=== PATIENT | male | born 1985 | race Hispanic/Latino ===

== ENCOUNTER 2017-01-11 12:14 | Emergency (ER) | payer OTHER ==
[~2017-01-11] VITALS: Ht 167.6 cm; Wt 83.6 kg
[~2017-01-11 12:14] MED LIST: CETI-188 PO
[2017-01-11 12:18] VITALS: BP 123/67; PULSE 89; RESP 14; O2SAT 95
--- NOTE | 2017-01-11 12:20 | ED.REPORT ---
HPI-Extremity Problem Lower Date of Service Jan 11, 2017 ED Provider: Alexis Reed MD 31 year old male presents to the ER via EMS accompanied by his due to right knee pain secondary to a sports-related injury that occurred while running during a soccer game just prior to arrival. He states that he was running and planted his right foot and pivoted to change directions. When he pushed off with his right leg he heard and felt a "pop" with onset of pain. Patient denies history of patellar dislocation, and any other injuries secondary to the accident. Nursing Notes Stated Complaint: RIGHT KNEE PAIN Chief Complaint: Extremity Trauma Nursing Notes Reviewed: Yes Allergies: Coded Allergies: No Known Allergies (Unverified Allergy, Unknown, 01/11/17) Scheduled Cetirizine-Expunged Drug, Do Not Renew! (Cetirizine-Expunged Drug, Do Not Renew! ) 10 Mg Tablet 10 MG PO PRN General Time Seen by MD: 12:19 Chief Complaint Knee injury right Hx Obtained From: Patient Arrived By: Ambulance Onset Occurred: Just prior to arrival Symptom Duration: Since onset Caused by: Accidental, Sports injury Context: Occurred at: Sports injury Location: : Knee right Quality: Painful Severity: Current: Moderate Severity: Maximum: Moderate Past Medical History Past Medical History Healthy Past Surgical History Reports: Appendectomy Smoking History Unknown if Ever Smoker Social History Other Social History: Good social support Review of Systems Musculoskeletal: Reports: Joint pain (Right Knee), Denies: Back pain, Extremity pain, Lumbar pain, Neck pain, Thoracic pain Neurologic: Denies: Headache, Syncope Complete sys rev & neg: except as marked. Physical Exam Initial Vital Signs Vital Signs (First) Date Time Temp Pulse Resp B/P Pulse Ox O2 Delivery O2 Flow Rate FiO2 01/11/17 12:18 37.3 89 14 123/67 95 Room Air Initial VS: Reviewed General/Constitutional: Well-developed, Well-nourished Head / Eyes: Atraumatic, Normocephalic, PERRL Neck: Supple, Non-tender, Full range of motion Upper Extremities: Vascular intact, Neuro intact, No swelling, No tenderness Skin: Warm, Dry, No cyanosis Neurologic: Alert, Oriented, Nonfocal Lower Extremity / Pelvis / MS: Neurologic intact, Vascular intact Right Knee: Positive: Tenderness present... High-riding Right Patella, appears to be midline. Presents with Right knee flexed, easily straightened out. Ankle / Foot: Atraumatic, Inspection NL, Full range of motion, No swelling, No erythema, Non-tender, No deformity, Neurologic intact, Vascular intact, No edema Interpretation & Diagnostics Lab Results Interpretation Test 01/11/17 12:33 Hold Purple Top Tube Received (Received) Hold Blue Top Tube Received (Received) Hold Red Top Tube Received (Received) Hold Mills Top Tube Received (Received) X-Ray Interpretation Xray Interpretation: IMPRESSION: High positioned patella. Patellar tendon abnormality would be suspect. Dictated by: Tk Mantilla M.D. on 01/11/2017 at 13:46 Approved by: Tk Mantilla M.D. on 01/11/2017 at 13:46 X-Ray Ordered: Knee right Interpretation / Wet Read by: Interpret - Radiologist Procedures Splint Application - Fx Mgt Time: 13:13 Procedure Performed by: ED physician, Plating Tank Operator Precise Anatomic Location: Right Knee Knee immobilizer Post-Procedure / Complications: Cap refill normal, Post splint vascular nl, Post splint neuro nl, Condition improved, Tolerated procedure well, Patient stable Splint Post-Application Eval Extremity Condition: Cap refill < 2 sec, Distal sensation intact, Distal motor Intact, No compartment syndrome Re-Eval/Medical Decision Med Decision/Clinical Course MRI ordered for ortho planning. Pt will be discharged post MR with ortho to follow up on results. Re-Evaluation/Progress #1: Time of Eval: 13:09 Re-Evaluation/Progress Note: Discussed radiology and plan to discharge with instructions to follow-up with orthopedics. Re-Evaluation/Progress #2: Time of Eval: 13:30 Re-Evaluation/Progress Note: Discussed consults with orthopedics and radiology and need for MRI. Patient is amenable to the plan to wait for MRI today. All other questions addressed. Consultation #1: Referral / Consult Name: Naeem Sims MD Consulted With: Orthopedic Call Returned at: 13:13 Environmental Control Administrator: Will see patient Note: Recommends MRI, today. Consultation #2: Referral / Consult Name: Tk Mantilla MD Consulted With: On-call physician (Radiology) Call Returned at: 13:22 Consultation #3: Referral / Consult Name: Naeem Sims MD Consulted With: Orthopedic Call Returned at: 13:42 Note: Updated Dr. Sims on the plan of care. Counseled Regarding: Diagnosis, Lab results, Need for follow-up, When/why to return to ED Discharge & Departure Impression: Primary Impression: Patellar tendon rupture Disposition: Home Discharge Condition All VS Reviewed: Yes Condition: Stable Patient Instructions: Crutch Instructions (ED) Additional Instructions: ED evaluation included interview, exam and x-ray. At the request of the orthopedics doctor, we got an MRI of your knee. Wear your knee immobilizer at all times. Use crutches, no wt bearing on R leg. Call for orthopedics follow up jacey, Dr Sims will review your MRI. May use percocet 1-2 every 4 hours as needed for pain. elevate knee above level of heart when able. return to ED for severe pain in leg, or if foot is numb or cold. Referrals: Naeem Sims MD Attestation Portions of this note were transcribed by David Gandara. I, Dr. Reed, personally performed the history, physical exam and medical decision-making; I reviewed and confirmed the accuracy of the information in the transcribed note. Signed by: Sidney Dukes, 01/11/2017, and 13:50 copies to: Naeem Sims MD, Donald L MD Jan 11, 2017 12:20 DAVID GANDARA Jan 11, 2017 12:30
--- NOTE | 2017-01-11 13:48 | DRSVH ---
PROCEDURE: X-RAY RIGHT KNEE, THREE VIEWS ([id number]) INDICATIONS: trauma with deformity TECHNIQUE: 3 views of the knee were acquired. COMPARISON: None. FINDINGS: Bones: No fractures or dislocations. Patella is high in position. Soft tissues: No joint effusion. No suspicious soft tissue calcifications. IMPRESSION: High positioned patella. Patellar tendon abnormality would be suspect. Dictated by: Tk Manitlla M.D. on 01/11/2017 at 13:46 Approved by: Tk Mantilla M.D. on 01/11/2017 at 13:46
[2017-01-11] MEDS ORDERED: oxyCODONE-Acetamin 5-325 mg Tablet PO ONE (13:50)
[2017-01-11] MEDS ORDERED: OXYC-407 PO (15:00)
--- NOTE | 2017-01-11 16:25 | DRSVH ---
PROCEDURE: MRI KNEE RIGHT WITHOUT CONTRAST ([id number]) INDICATIONS: r knee pain/unable to actively extend TECHNIQUE: Noncontrast sagittal PD fast spin echo and T2 fast spin echo with fat saturation, sagittal 3-D FLASH with fat saturation; coronal T1 spin echo and PD fast spin echo with fat saturation, and axial PD fas t spin echo with fat saturation through the knee. COMPARISON: None. FINDINGS: Image quality: Diagnostic. Bones and joint: No acute fracture or dislocation is identified. However, there is proximal migrati on of the patella with respect to the tibia related to a full-thickness proximal patellar tendon tear . No bony avulsion is appreciated. No suspicious osseous lesions are evident. The hyaline articula r cartilage appears to be intact within all 3 compartments of the knee. However, there is mild heter ogeneity of the cartilage within the patellofemoral compartment and the medial compartment. There is a moderate-sized knee joint effusion without significant fluid extending into a Mora cyst. Menisci: There is low-grade partial-thickness tearing involving the anterior attachment of the media l and lateral menisci as well as the posterior attachment of the medial meniscus. Additional undersu rface fraying along the body and posterior horn of the medial meniscus is present. No displaced meni scal fragments or significant articular surface involvement is appreciated. Cruciate ligaments: The anterior cruciate ligament is slightly thickened and it noted to be edematou s. There probably is at least low-grade partial-thickness tearing. The posterior cruciate ligament is intact and otherwise within normal limits. Medial structures: Extensive edema along the anteromedial aspect of the knee is identified extending along the medial patellofemoral ligament. There probably is a complete tear involving this ligament . The medial collateral ligament appears intact. The distal semimembranosus tendon is intact and oth erwise within normal limits. Visualized portions of the pes anserinus tendons appear normal. No abn ormal bursal fluid. Lateral structures: Prominent edema is noted along the anterolateral margin of the knee. There is e chloe noted at the tendinous attachment of the patellofemoral ligament with a probable full-thickness tear present. The distal iliotibial band and biceps femoris tendons are intact. The lateral collate ral ligament and the proximal popliteal tendon also appear to be intact. The proximal tibiofibular l igaments are intact. Anterior structures: There is a full-thickness tear involving the patellar attachment of the patella r tendon with proximal migration of the patella with respect to be torn patellar tendon by approximat april 1.7 cm. Additional partial-thickness tearing through the tendon is evident, including the tibial attachment. There is a large amount of overlying edema and fluid about the anterior aspect of the k nee, including within the prepatellar bursa and the infrapatellar fat pad. The distal quadriceps ten don appears intact and is otherwise unremarkable. IMPRESSION: 1. Full-thickness proximal patellar tendon tear with separation of the patella and the patellar tend on fragment by up to 1.7 cm. Additional intrasubstance partial thickness tearing of the patellar ten don is present. There is prominent overlying edema. No bony avulsion is evident or suspected. 2. Probable full-thickness tears of the medial and lateral patellofemoral ligaments. 3. Low-grade anterior cruciate ligament sprain. 4. Low-grade partial-thickness tearing involving the anterior and posterior attachment of the medial meniscus and the anterior attachment of the lateral meniscus. No significant articular surface tear ing or displaced meniscal fragment. 5. Moderate knee joint effusion. Dictated by: Marco Galvez M.D. on 01/11/2017 at 15:14 Approved by: Marco Galvez M.D. on 01/11/2017 at 15:23
[2017-01-14] MEDS ORDERED: POLY17PO6 PO (15:30)
== END 2017-01-11 15:00 | disposition home or self-care (01) ==
LOC: SED 13:37
DX: S76.111A Strain of right quadriceps muscle, fascia and tendon, initial encounter (principal); X50.9XXA Other and unspecified overexertion or strenuous movements or postures, initial encounter; Y93.02 Activity, running; Y93.66 Activity, soccer; Y92.322 Soccer field as the place of occurrence of the external cause; Z88.5 Allergy status to narcotic agent

== ENCOUNTER → 2017-01-14 | Day surgery (SDC) | payer OTHER ==
[~2017-01-14] VITALS: Ht 167.6 cm; Wt 85.5 kg
[2017-01-14] VITALS (9 sets, daily range): BP systolic 119–145; BP diastolic 70–82; PULSE 62–67; RESP 12–18; O2SAT 96–100
[~2017-01-14] MED LIST changes: +Atropine 0.4 mg/mL Inj IVPUSH PRN; +Bacitracin 50,000 unit Inj IRRIGATION ONE; +CeFAZolin Inj 2 GM in IV Premix 1 EACH IV ONE; +CeFAZolin Inj 2 gm / 50mL D5W IV ONE; +Dexamethasone 4 mg/mL Inj IVPUSH PRN; +EPHEDrine Sulfate 50 mg/mL Inj IVPUSH PRN; +HYDROmorphone 1 mg/mL Inj IVPUSH PRN; +Ketamine 10 mg/mL 20 mL Inj ONE; +Ketorolac 15 mg/mL Inj IVPUSH ONE; +Labetalol 5 mg/mL 4 mL Inj IV PRN; +Lactated Ringer's 1,000 ML IV SCH; +Lactated Ringer's 500 ML IV PRN; +MetoCLOpramide 5 mg/mL 2 mL Inj IVPUSH PRN; +OXYC-407 PO; +Ondansetron 2 mg/mL 2 mL Inj IVPUSH PRN; +POLY17PO6 PO; +Phenylephrine 10,000 mCg/mL Inj IVPUSH PRN; +Ropivacaine-PF 0.5% 30 mL Inj INFILTRATE ONE; +fentaNYL-PF 50 mCg/mL 2 mL Inj IVPUSH PRN; +fentaNYL-PF 50 mCg/mL 2 mL Inj ONE; +oxyCODONE-Acetamin 5-325 mg Tablet PO PRN
--- NOTE | 2017-01-14 13:16 | PCM.HPANE ---
Patient Data Date of Service: Jan 14, 2017 Surgeon Admitting Provider: Attending Provider:Han St MD Primary Care Physician:Raymond Agarwal MD Other Provider:Mariela Long Anesthesia Reason for Visit Right Patellar Tendon Rupture Ht/WT & BMI Height (Feet): 5 Height (Inches): 6 Weight (Kilograms): 83.63 Body Mass Index 29.00 Allergies Coded Allergies: hydrocodone (Verified Allergy, Mild, Rash,Itching,, 01/14/17) Diabetes History Hx Diabetes?: No MRSA MRSA: No Medications Active Scripts Oxycodone HCl/Acetaminophen 5-325 (Endocet 5-325)1 Each Tablet1-2 Tablet PO Q4H PRN For Pain #30 TABLET Prov:Alexis Reed MD 01/11/17 Reported Medications Polyethylene Glycol 3350 (Miralax)17 Gm Powd.pack17 Gm PO DAILY PRN For Constipation 01/14/17 History History of ENT Problems?: No Hx of Heart Problems?: No Cardiovascular History: Denies:: Congestive Heart Failure Hypertension Hx of Respiratory Problem?: No Respiratory History: Denies:: Tuberculosis Hx Neurologic Problems?: No Hx of GI Problems?: No Hx of Problems?: No Skin History: Positive for:: History Skin Disorders? Hx Musculoskeletal Problems?: Yes Musculoskeletal History: Positive for:: Musculoskeletal Trauma (R PATELLA INJURY) Hx of Psycho/Social Problems?: No Hx Surgeries?: Yes (01/30 PATELLA [place] REPAIR) Hx Any Other Health Problems?: No Other History: Denies:: Cancer Hx Diabetes: No Hx Alcohol Use: Yes (SOCIALLY)Hx Substance Use: No Smoking Status: Unknown if Ever Smoker Stop/Bang Treated for Sleep Apnea?: No Do You Have a CPAP Machine?: No S-Snoring: Do You Snore Loudly: No T-Tired: feel tired, fatigued: No O-Obsered: Observed not breath: No P-Blood Pressure: treated: No B- Body Mass Index > 35 kg/m2: No A- Age over 50: No N- Neck Large Circumference: No G- Gender Male: Yes ALYCE Total Score: 1 ALYCE Risk Assessment: Low Risk, <3 Yes Risk Assessment Category Category 1A: Patient has history of documented sleep apnea, and HAS NOT received any narcotic, sedative or anesthesia administration during this stay. Category 1B: Patient has history of documented sleep apnea, and HAS received any narcotic , sedative or anesthesia administration during this stay Category 2: Patient has SUSPECTED Obstructive Sleep Apnea, and HAS received any narcotic , sedative or anesthesia administration during this stay. Category 3: Patient has SUSPECTED Obstructive Sleep Apnea and HAS NOT received narcotic, sedative or anesthesia administration during this stay. Category 4: Outpatient in Procedural Areas with known sleep apnea or who screen positive for High Risk via the STOP/BANG questionnaire. Exam Exam General Appearance: Alert, Oriented X3, Cooperative, No Acute Distress HEENT/AIRWAY: MP 2 Lungs: Clear to Auscultation, Normal Air Movement Heart: Exam Unremarkable, Normal S1, Normal S2, No Murmurs/Rubs/Gallops Plan Impression Patient chart reviewed, patient interviewed and anesthestic plan with risks, benefits, and alternatives discussed, and informed consent obtained. ASA Physical Status: ASA1 Normal Healthy Anesthetic Plan: GA, Regional Block (FNB at request of surgeon for postop pain mgt) Bene/Risks/Altern/Consents: Yes HP Complete Prior to Induction: Yes Hu Abernathy DO Jan 14, 2017 13:16
[2017-01-14] MEDS: Lactated Ringer's 1,000 ML IV SCH ×2 (15:28→16:55)
--- NOTE | 2017-01-14 18:17 | PCM.ORTHOP ---
Orthopedic Operative Report Date of Service: Jan 14, 2017 Pre Operative Diagnosis Right patellar tendon rupture Post Operative Diagnosis Right patellar tendon rupture Procedure Right patellar tendon open repair, retinaculum repair Surgeon Surgeon: Han St MD Assistants: Francisco Bailey Indication for Procedure Right patellar tendon rupture Findings Right patellar tendon full thickness rupture, retinacular tear Details of Procedure Indication: Matthieu Contreras is a 31-year-old male presents s/p right patellar tendon rupture status post playing soccer. A clear explanation was given to the patient regarding the condition present, and the available conservative and surgical options. It was emphasized that the risks and benefits of surgery include but are not limited to infection, wound healing problems, damage to adjacent structures such as nerves, blood vessels and tendons, intermediate disability and pain, arthritis, hypersensitivity, deep vein thrombosis, pulmonary embolism, broken hardware, failure of surgery, need for further procedures at time of surgery or later, cast related problems, loss of limb or life. The patient was given an explanation and the patient voiced understanding of what to expect after the procedure or surgery, the limitations in activities of daily living, the likely duration for post operative recovery and the instructions that are to be followed. At the end the patient was invited to seek clarification or ask further questions but there were none. The patient voiced understanding of the entire consultation. Description of Procedure: Patient was marked and taken to OR. The patient was positioned supine and proper time out was performed with nursing, anesthesia, and faculty. Patient then underwent general endotracheal intubation and was prepped and draped in the normal sterile fashion. Tourniquet was used and inflated to 250 mmHg. A 7 cm longitudinal incision was made over the patella and patellar tendon. The patella and patellar tendon was exposed and debrided along the torn edges of the tendon and then irrigated. Three drill holes were made equidistant from each other and the medial and lateral edges of the patella and close to the articular surface of the patella. A modified [place] Stephens stitch was used to weave #5 FiberWire sutures through the tendon to allow for four separate suture limbs that were separately placed through the drilled holes in the patella. The patella was cinched down and the sutures were tied superior to the patella. #2 Ethibond was then used to reinforce the construct and repair the retinaculum. The wound was again irrigated. The wound was closed with 2-0 vicryl and cuong for the skin. Xeroform, 4 x 4 gauze, and soft roll were applied followed by a long leg splint and knee immobilizer. I was present for the entire procedure. There were no complications. The patient was extubated and patient taken to recovery in stable condition. LANDMEN SURGEON: During the operation, the services of physician bankruptcy assistant were medically indicated and necessary to provide exposure of the operative site for the surgical procedure and to maintain the limb in a proper position to carry out the operation safely and efficiently. Without the qualified phlebotomy lab assistant being present, it would have extended the operative procedure and made the procedure technically more difficult to perform. Grafts, Implants: None Complications There were no periprocedural complications identified. Condition Stable Anesthetic Administered: GA Catheters: None Output, Estimated Blood Loss: 10 Blood Admin during surgery: No Surgical Cast or Splint: Knee Immobilizer Surgical Specimen Removed: No Specimen sent to Pathology: No copies to: Han St MD, Christopher L MD Jan 14, 2017 18:17
--- NOTE | 2017-01-14 18:46 | PCM.ANEP1 ---
Post Anesthesia Phase 1 PACU Phase 1 Assessment Date of Service: Jan 14, 2017 Vital Signs Vital Signs Date Time Temp Pulse Resp B/P Pulse Ox O2 Delivery O2 Flow Rate FiO2 01/14/17 18:40 64 12 122/77 96 Room Air 01/14/17 18:35 67 12 130/80 100 Simple Mask 6 01/14/17 18:30 36.0 67 12 129/70 100 Simple Mask 6 01/14/17 15:27 36.8 62 18 119/73 99 Room Air Anesthetic Administered: GA Level of Alertness: Awake, talking AVILA's with Equal Strength: No (RLE immobilized and FNB effective) Pain: No Nausea or Vomiting: No Oxygen Delivery: Room Air Lungs: Clear to Auscultation, Normal Air Movement Dermatome Level: Full Sensation (with sensory block c/w FNB) Hu Abernathy DO Jan 14, 2017 18:46
--- NOTE | 2017-01-14 19:23 | PCM.ANEP2 ---
Post Anesthesia Evaluation ASA/CMS Post Anesthesia Date of Service: Jan 14, 2017 VS in Patient's Normal Range?: Yes Resp Stable; Airway Patent?: Yes CV Function & Hydration Stable: Yes Mental Status Recovered?: Yes Pain control Satisfactory?: Yes N/V Control Satisfactory?: Yes Hu Abernathy DO Jan 14, 2017 19:23
== END | disposition home or self-care (01) ==
LOC: SAS 14:35
PROVIDERS: ATTEND Orthopaedic Surgery
DX: S86.811A Strain of other muscle(s) and tendon(s) at lower leg level, right leg, initial encounter (principal); X50.0XXA Overexertion from strenuous movement or load, initial encounter; Y93.66 Activity, soccer; Y92.9 Unspecified place or not applicable; H52.10 Myopia, unspecified eye; H52.209 Unspecified astigmatism, unspecified eye
CPT/HCPCS: 27380; J0690; J1885; J2250; J2795; J3010; J7120